=== PATIENT | male | born 1965 | race Caucasian/White ===

== ENCOUNTER → 2019-01-18 11:13 | Outpatient (CLI) | payer MEDICAID ==
[2011-02-25 08:12] VITALS: BMI 33.7
== END | disposition home or self-care (01) ==
LOC: D.LAB 11:13
PROVIDERS: ATTEND Internal Medicine Gastroenterology
DX: R19.7 Diarrhea, unspecified (principal); R10.30 Lower abdominal pain, unspecified

== ENCOUNTER → 2019-08-02 14:19 | Outpatient (CLI) | payer MEDICAID ==
[2011-02-25 08:12] VITALS: BMI 33.7
== END | disposition home or self-care (01) ==
LOC: D.LABREF 14:19
PROVIDERS: ATTEND Internal Medicine Pulmonary Disease
DX: J40 Bronchitis, not specified as acute or chronic (principal); J30.9 Allergic rhinitis, unspecified; R06.00 Dyspnea, unspecified

== ENCOUNTER → 2019-08-03 12:19 | Outpatient (CLI) | payer MEDICAID ==
[2011-02-25 08:12] VITALS: BMI 33.7
[2019-08-03 13:59] LABS: HEMATOCRIT 46.5 % (42.0-54.0); HEMOGLOBIN 15.2 g/dL (13.5-17.5); MCH 30.7 pg (26.0-34.0); MCHC 32.7 g/dL (31.0-37.0); MCV 93.9 fL (80.0-100.0); MEAN PLATELET VOLUME 10.8 fL (7.4-10.4); PLATELET COUNT 216 10x3/uL (130-400); RBC 4.95 10x6/uL (4.20-6.10); RDW 14.4 % (11.5-14.5); WBC 7.4 10x3/uL (4.8-10.8)
[2019-08-03 14:48] LABS: ANISOCYTOSIS OCC; EOSINOPHILS 10 % (0-7); LYMPHOCYTES 25 % (15-50); MONOCYTES 15 % (2-11); NEUTROPHILS 42 % (40-80); PLATELET ESTIMATE NORMAL
[2019-08-03 14:49] LABS: PLATELET MORPHOLOGY PLT CLUMPS PRESENT
[2019-08-04 07:14] LABS: IMMUNOGLOBULIN A 214 mg/dL (90-386); IMMUNOGLOBULIN G 1048 mg/dL (700-1600); IMMUNOGLOBULIN M 56 mg/dL (20-172)
[2019-08-06 14:08] LABS: IMMUNOGLOBULIN E 777 IU/mL (6-495)
== END | disposition home or self-care (01) ==
LOC: D.LABREF 12:19
PROVIDERS: ATTEND Internal Medicine Pulmonary Disease
DX: J40 Bronchitis, not specified as acute or chronic (principal); J30.9 Allergic rhinitis, unspecified; R06.00 Dyspnea, unspecified

== ENCOUNTER → 2019-08-17 15:16 | Outpatient (CLI) | payer MEDICAID ==
[2011-02-25 08:12] VITALS: BMI 33.7
== END | disposition home or self-care (01) ==
LOC: D.RT 15:16
PROVIDERS: ATTEND Internal Medicine Pulmonary Disease
DX: R06.00 Dyspnea, unspecified (principal)